=== PATIENT | female | born 1995 | race Caucasian/White ===

== ENCOUNTER 2025-01-03 11:08 | Outpatient (CLI) | payer MEDICAID, SELFPAY | END 2025-01-03 11:09 | disposition home or self-care (01) | LOC: NFLDREF 01-07 04:38 | PROVIDERS: Visit Provider Advanced Practice Midwife | DX: Z34.93 Encounter for supervision of normal pregnancy, unspecified, third trimester (principal) | CPT/HCPCS: 86592 ==